=== PATIENT | male | born 1965 | race American Indian/Alaskan Native ===

== ENCOUNTER 2017-01-11 09:17 | Outpatient (CLI) | payer OTHER ==
--- NOTE | 2017-01-11 11:07 | XRay Report ---
LEFT KNEE, 3 views: History: Left knee pain, patellofemoral syndrome Moderate tricompartmental osteoarthritic changes are identified. There is no evidence for fracture, bone lesion or large joint effusion. Normal bone mineralization. IMPRESSION: Osteoarthritis. No acute process.
== END 2017-01-11 09:18 | disposition home or self-care (01) ==
LOC: XRAY 09:17
PROVIDERS: ATTEND Internal Medicine
DX: M17.12 Unilateral primary osteoarthritis, left knee (principal); M22.2X2 Patellofemoral disorders, left knee